=== PATIENT | male | born 1965 | race African-American/Black ===

== ENCOUNTER 2022-11-12 17:01 | Emergency (ER) | payer SELFPAY ==
[~2022-11-12] VITALS: Ht 188 cm; Wt 115.3 kg
[2022-11-12] MEDS ORDERED: CEPHALEXIN 250 MG CAP PO ONE (20:00)
[2022-11-12] MEDS ORDERED: HYDROcodone-ACET 10/325MG TAB PO ONE (20:00)
[2022-11-12] MEDS ORDERED: CEPH500C PO (20:15)
[2022-11-12] MEDS ORDERED: HYDR-4902 PO (20:16)
[2022-11-12 20:54] VITALS: BP 171/78
== END 2022-11-12 21:06 | disposition home or self-care (01) ==
LOC: ER 17:01
DX: L03.114 Cellulitis of left upper limb (principal); I10 Essential (primary) hypertension; Z88.1 Allergy status to other antibiotic agents; Z91.040 Latex allergy status; Z98.890 Other specified postprocedural states